=== PATIENT | female | born 1955 | race Caucasian/White ===

== ENCOUNTER → 2018-06-18 | Outpatient (CLI) | payer BC ==
[~2018-06-18] MED LIST: ASPI-496 PO; LACT1CAP43 PO; LOSA25TA25 PO; MSM PO; TURMERIC PO; VITAMIN C PO; WHEATGRASS PO; [UNRECOGNIZED DRUG - OTHER] PO; [UNRECOGNIZED DRUG - OTHER] PO
[2018-06-18 12:03] LABS: BASOPHILS # (AUTO) 0.02 x10^3/uL (0-0.1); BASOPHILS % (AUTO) 0 % (0-1); EOSINOPHILS # (AUTO) 0.14 x10^3/uL (0-0.4); EOSINOPHILS % (AUTO) 2 % (1-7); LYMPHOCYTES # (AUTO) 1.77 x10^3/uL (1-3.4); LYMPHOCYTES % (AUTO) 29 % (22-44); MD NO; MEAN CORPUSCULAR HEMOGLOBIN 32.2 pg (27.0-34.8); MEAN CORPUSCULAR HGB CONC 34.4 g/dL (32.4-35.8); MEAN CORPUSCULAR VOLUME 93.8 fL (80-100); MEAN PLATELET VOLUME 7.1 fL (7.4-10.4); MONOCYTES # (AUTO) 0.45 x10^3/uL (0.2-0.8); MONOCYTES % (AUTO) 8 % (2-9); NEUTROPHILS # (AUTO) 3.63 x10^3/uL (1.8-6.8); NEUTROPHILS % (AUTO) 61 % (42-75); PLATELET COUNT 356 x10^3/uL (130-400); RED BLOOD COUNT 4.28 x10^6/uL (3.82-5.3); RED CELL DISTRIBUTION WIDTH 12.7 % (9.6-15.2)
[2018-06-18 13:16] LABS: ALANINE AMINOTRANSFERASE 36 U/L (12-78); ANION GAP 9 mmol/L (5-15); CALCIUM 9.3 mg/dL (8.5-10.1); CHLORIDE 106 mmol/L (98-107); CREATININE 0.77 mg/dL (0.55-1.02)
[2018-06-18 13:17] LABS: ALKALINE PHOSPHATASE 56 U/L (45-117); BILIRUBIN,TOTAL 0.3 mg/dL (0.2-1.0); TOTAL PROTEIN 7.6 g/dL (6.4-8.2)
== END | disposition home or self-care (01) ==
LOC: STAR 10:54
PROVIDERS: ATTEND Obstetrics & Gynecology
DX: Z01.818 Encounter for other preprocedural examination (principal); D07.1 Carcinoma in situ of vulva
CPT/HCPCS: 36415; 71046; 80053; 85025; 93005

== ENCOUNTER 2018-06-25 09:02 | Day surgery (SDC) | payer BC ==
[~2018-06-25] VITALS: Ht 163.8 cm; Wt 77.3 kg
[~2018-06-25 09:02] MED LIST changes: -ASPI-496 PO; -LOSA25TA25 PO; +LOSA25TA6 PO
[2018-06-25] MEDS ORDERED: LACTATED RINGERS 1,000 ML IV SCH (09:18)
[2018-06-25] MEDS ORDERED: OxyconTIN ER 10 MG TAB.ER PO ONE (09:30)
[2018-06-25] MEDS ORDERED: ACETAMINOPHEN 500 MG TABLET PO ONE (09:30)
[2018-06-25] MEDS ORDERED: FENTANYL PF 100 MCG/2ML ONE (10:41)
[2018-06-25] MEDS ORDERED: MIDAZOLAM 1 MG/ML, 2ML ONE (10:41)
[2018-06-25] MEDS ORDERED: EPINEPHRINE 1 MG/ML, 1ML ONE (11:16)
[2018-06-25] MEDS ORDERED: BUPIVACAINE/PF 0.25% ONE (11:16)
[2018-06-25] MEDS ORDERED: PROPOFOL 10 MG/ML, 20ML ONE (11:22)
[2018-06-25] MEDS ORDERED: DEXAMETHASONE 4 MG/ML, 1ML ONE (11:22)
[2018-06-25] MEDS ORDERED: CEFAZOLIN 1,000 MG ONE (11:22)
[2018-06-25] MEDS ORDERED: ONDANSETRON 2MG/ML, 2ML ONE (11:22)
[2018-06-25] MEDS ORDERED: FENTANYL PF 100 MCG/2ML IV PRN (12:00)
[2018-06-25] MEDS ORDERED: HYDROmorphone 2 MG/ML, 1ML IVPush PRN (12:00)
[2018-06-25] MEDS ORDERED: LABETALOL 5MG/ML, 20ML IV PRN (12:00)
[2018-06-25] MEDS ORDERED: HALOPERIDOL 5 MG/ML IV PRN (12:00)
[2018-06-25] MEDS ORDERED: hydrALAzine 20 MG/ML, 1ML IV PRN (12:00)
[2018-06-25] MEDS ORDERED: ALBUTEROL SULFATE 2.5 MG/3 ML NPPB PRN (12:00)
[2018-06-25] MEDS ORDERED: OXYcodone 5 MG/5 ML ORAL.SOL UDC PO PRN (12:00)
[2018-06-25] MEDS ORDERED: PROMETHAZINE 25 MG/ML, 1ML IV PRN (12:00)
[2018-06-25] MEDS ORDERED: OXYcodone 5 MG/5 ML ORAL.SOL UDC ONE (12:08)
== END 2018-06-25 13:40 | disposition home or self-care (01) ==
LOC: OUT 09:02
PROVIDERS: ATTEND Obstetrics & Gynecology
DX: D07.1 Carcinoma in situ of vulva (principal); I10 Essential (primary) hypertension; I48.91 Unspecified atrial fibrillation; E78.5 Hyperlipidemia, unspecified; Z72.89 Other problems related to lifestyle
CPT/HCPCS: 36415; 56620; 86850; 86900; 88305; J0171; J0690; J1100; J2250; J2405; J2704; J3010; J3490; J7120

== ENCOUNTER 2018-07-09 08:03 | Day surgery (SDC) | payer BC ==
[~2018-07-09] VITALS: Ht 162.6 cm; Wt 78.0 kg
[~2018-07-09 08:03] MED LIST changes: +LOSA25TA25 PO; -LOSA25TA6 PO
[2018-07-09] MEDS ORDERED: LACTATED RINGERS 1,000 ML IV SCH (08:39)
[2018-07-09] MEDS ORDERED: ACETAMINOPHEN 500 MG TABLET PO ONE (09:00)
[2018-07-09] MEDS ORDERED: PLEASE ENTER HEIGHT AND WEIGHT MC SCH (09:00)
[2018-07-09 09:03] VITALS: BP 151/87
[2018-07-09] MEDS ORDERED: MIDAZOLAM 1 MG/ML, 2ML ONE (09:04)
[2018-07-09] MEDS ORDERED: FENTANYL PF 100 MCG/2ML ONE (09:05)
[2018-07-09] MEDS ORDERED: ASPI-496 PO (09:11)
[2018-07-09] MEDS ORDERED: BUPIVACAINE/PF 0.25% ONE (09:24)
[2018-07-09] MEDS ORDERED: OxyconTIN ER 10 MG TAB.ER PO ONE (09:30)
[2018-07-09] MEDS ORDERED: SCOPOLAMINE PATCH, 1.5MG PATCH.TD72 TD ONE ×2 (09:31→10:00)
[2018-07-09] MEDS ORDERED: ONDANSETRON 2MG/ML, 2ML ONE (10:12)
[2018-07-09] MEDS ORDERED: DEXAMETHASONE 4 MG/ML, 1ML ONE (10:12)
[2018-07-09] MEDS ORDERED: PROPOFOL 10 MG/ML, 20ML ONE (10:12)
[2018-07-09] MEDS ORDERED: CEFAZOLIN 1,000 MG ONE (10:12)
[2018-07-09 10:22] LABS: MICROSCOPIC NOT IND
[2018-07-09 10:30] LABS: CULTURE INDICATED? NO
[2018-07-09] MEDS ORDERED: ALBUTEROL/IPRATROPIUM 2.5MG/0.5MG, 3 ML NPPB PRN (10:30)
[2018-07-09] MEDS ORDERED: METOPROLOL 1 MG/ML, 5ML IV PRN (10:30)
[2018-07-09] MEDS ORDERED: EPHEDRINE 50 MG/ML, 1ML IM PRN (10:30)
[2018-07-09] MEDS ORDERED: ONDANSETRON 2MG/ML, 2ML IV PRN (10:30)
[2018-07-09] MEDS ORDERED: hydrALAzine 20 MG/ML, 1ML IV PRN (10:30)
[2018-07-09] MEDS ORDERED: MIDAZOLAM 1 MG/ML, 2ML IV PRN (10:30)
[2018-07-09] MEDS ORDERED: PROMETHAZINE 25 MG/ML, 1ML IV PRN (10:30)
[2018-07-09] MEDS ORDERED: OXYcodone 5 MG/5 ML ORAL.SOL UDC PO PRN (10:30)
[2018-07-09] MEDS ORDERED: FENTANYL PF 100 MCG/2ML IV PRN (10:30)
[2018-07-09] MEDS ORDERED: OXYcodone 5 MG/5 ML ORAL.SOL UDC ONE (10:54)
== END 2018-07-09 12:35 | disposition home or self-care (01) ==
LOC: OUT 08:03
PROVIDERS: ATTEND Obstetrics & Gynecology
DX: N90.1 Moderate vulvar dysplasia (principal); Z72.89 Other problems related to lifestyle; I10 Essential (primary) hypertension
CPT/HCPCS: 56620; 81003; 88305; J0690; J1100; J2250; J2405; J2704; J3010; J3490; J7120

== ENCOUNTER → 2020-03-30 | Outpatient (CLI) | payer BC ==
[~2020-03-30] MED LIST changes: +APIX5TAB PO; +ASCO120P PO; +ASPI-496 PO; +CRAN1CAP PO; +LOSA50TA14 PO; +METH500C3 PO; +METO25TA2 PO; +NITR50CA PO
[2020-03-30 14:52] LABS: BASOPHILS # (AUTO) 0.03 x10^3/uL (0-0.1); BASOPHILS % (AUTO) 0 % (0-1); EOSINOPHILS # (AUTO) 0.12 x10^3/uL (0-0.4); EOSINOPHILS % (AUTO) 2 % (1-7); LYMPHOCYTES # (AUTO) 1.91 x10^3/uL (1-3.4); LYMPHOCYTES % (AUTO) 24 % (22-44); MD NO; MEAN CORPUSCULAR HEMOGLOBIN 33.1 pg (27.0-34.8); MEAN PLATELET VOLUME 7.4 fL (7.4-10.4); MONOCYTES % (AUTO) 9 % (2-9); NEUTROPHILS # (AUTO) 5.14 x10^3/uL (1.8-6.8); NEUTROPHILS % (AUTO) 65 % (42-75); PLATELET COUNT 506 x10^3/uL (130-400); RED BLOOD COUNT 3.75 x10^6/uL (3.82-5.3); RED CELL DISTRIBUTION WIDTH 13.4 % (9.6-15.2)
[2020-03-30 14:58] LABS: PROTHROMBIN TIME 10.3 Seconds (9.6-11.5)
[2020-03-30 14:59] LABS: ALANINE AMINOTRANSFERASE 27 U/L (12-78); ALBUMIN 3.8 g/dL (3.4-5.0); ANION GAP 6 mmol/L (5-15); CALCIUM 9.9 mg/dL (8.5-10.1); CHLORIDE 102 mmol/L (98-107); CREATININE 0.87 mg/dL (0.55-1.02)
[2020-03-30 15:01] LABS: ALKALINE PHOSPHATASE 77 U/L (45-117); BILIRUBIN,TOTAL 0.4 mg/dL (0.2-1.0); TOTAL PROTEIN 7.7 g/dL (6.4-8.2)
== END | disposition home or self-care (01) ==
LOC: STAR 12:34
PROVIDERS: ATTEND Obstetrics & Gynecology
DX: Z01.818 Encounter for other preprocedural examination (principal); Z20.828 Contact with and (suspected) exposure to other viral communicable diseases; N90.1 Moderate vulvar dysplasia
CPT/HCPCS: 36415; 71046; 80053; 85025; 85610; 85730; 87635; 93005

== ENCOUNTER 2020-04-03 05:43 | Day surgery (SDC) | payer BC ==
[~2020-04-03] VITALS: Ht 163.8 cm; Wt 77.4 kg
[2020-04-03] MEDS ORDERED: LACTATED RINGERS 1,000 ML IV SCH (06:11)
[2020-04-03] MEDS ORDERED: CHLORHEXIDINE 15 ML UDC MM STA (06:11)
[2020-04-03] MEDS ORDERED: CEFOTETAN PMX 2GM/50ML 50 ML IV STA (06:11)
[2020-04-03 06:14] VITALS: BP 163/92
[2020-04-03] MEDS ORDERED: BUPIVACAINE/PF 0.25% ONE (06:52)
[2020-04-03] MEDS ORDERED: LIDOCAINE JELLY 2%, 30GM ONE (06:52)
[2020-04-03] MEDS ORDERED: SILVER SULF. CRM 1% , 25GM ONE (06:52)
[2020-04-03] MEDS ORDERED: EPINEPHRINE 1 MG/ML, 1ML ONE (06:52)
[2020-04-03] MEDS ORDERED: ACETAMINOPHEN 500 MG TABLET PO STA (07:02)
[2020-04-03] MEDS ORDERED: MIDAZOLAM 1 MG/ML, 2ML ONE (07:09)
[2020-04-03] MEDS ORDERED: FENTANYL PF 100 MCG/2ML ONE (07:09)
[2020-04-03] MEDS ORDERED: EPHEDRINE 50 MG/ML, 1ML IVPush PRN (07:30)
[2020-04-03] MEDS ORDERED: PROMETHAZINE 25 MG/ML, 1ML IVPush PRN (07:30)
[2020-04-03] MEDS ORDERED: MEPERIDINE/PF 25MG/0.5ML IVPush PRN (07:30)
[2020-04-03] MEDS ORDERED: ONDANSETRON 2MG/ML, 2ML IVPush PRN (07:30)
[2020-04-03] MEDS ORDERED: OXYcodone 5 MG/5 ML ORAL.SOL UDC PO PRN (07:30)
[2020-04-03] MEDS ORDERED: LABETALOL 5MG/ML, 20ML IV PRN (07:30)
[2020-04-03] MEDS ORDERED: hydrALAzine 20 MG/ML, 1ML IV PRN (07:30)
[2020-04-03] MEDS ORDERED: HYDROmorphone 1 MG/ML, 1ML INJ IVPush PRN (07:30)
[2020-04-03] MEDS ORDERED: FENTANYL PF 100 MCG/2ML IV PRN (07:30)
[2020-04-03] MEDS ORDERED: LIDOCAINE-MPF 2% ,5ML ONE (07:46)
[2020-04-03] MEDS ORDERED: ONDANSETRON 2MG/ML, 2ML ONE (07:46)
[2020-04-03] MEDS ORDERED: DEXAMETHASONE 4 MG/ML, 1ML ONE ×2 (07:46)
[2020-04-03] MEDS ORDERED: KETOROLAC 30 MG/1 ML ONE (07:47)
[2020-04-03] MEDS ORDERED: PROPOFOL 10 MG/ML, 20ML ONE (07:47)
[2020-04-03] MEDS ORDERED: GLYCOPYRROLATE 0.2MG/1ML, 5ML ONE (07:58)
== END 2020-04-03 09:50 | disposition home or self-care (01) ==
LOC: OUT 05:43
PROVIDERS: ATTEND Obstetrics & Gynecology
DX: N90.1 Moderate vulvar dysplasia (principal); I10 Essential (primary) hypertension; J44.9 Chronic obstructive pulmonary disease, unspecified; I48.91 Unspecified atrial fibrillation; Z79.01 Long term (current) use of anticoagulants; Z79.899 Other long term (current) drug therapy; Z90.49 Acquired absence of other specified parts of digestive tract; Z87.891 Personal history of nicotine dependence; Z80.1 Family history of malignant neoplasm of trachea, bronchus and lung; Z72.89 Other problems related to lifestyle; Z80.3 Family history of malignant neoplasm of breast; Z98.890 Other specified postprocedural states
CPT/HCPCS: 56501; J0171; J1100; J1885; J2250; J2405; J2704; J3010; J3490; J7120

== ENCOUNTER → 2020-05-04 | Outpatient (CLI) | payer BC | END | disposition home or self-care (01) | LOC: CFH 15:10 | PROVIDERS: ATTEND Internal Medicine Cardiovascular Disease | DX: I11.9 Hypertensive heart disease without heart failure (principal); R06.02 Shortness of breath | CPT/HCPCS: 93306 ==

== ENCOUNTER → 2020-05-18 | Outpatient (CLI) | payer BC | END | disposition home or self-care (01) | LOC: CFH 13:00 | PROVIDERS: ATTEND Registered Nurse | DX: Z12.2 Encounter for screening for malignant neoplasm of respiratory organs (principal); Z87.891 Personal history of nicotine dependence; I25.10 Atherosclerotic heart disease of native coronary artery without angina pectoris; R91.8 Other nonspecific abnormal finding of lung field | CPT/HCPCS: G0297 ==

== ENCOUNTER → 2020-10-04 | Outpatient (CLI) | payer BC | END | disposition home or self-care (01) | LOC: CFH 10:56 | PROVIDERS: ATTEND Registered Nurse | DX: R91.1 Solitary pulmonary nodule (principal); E04.1 Nontoxic single thyroid nodule; J98.11 Atelectasis | CPT/HCPCS: 71250 ==